=== PATIENT | female | born 2005 | race Caucasian/White ===

== ENCOUNTER 2025-04-29 21:54 | Emergency (ER) | payer BC ==
[2025-04-29] MEDS ORDERED: Lidocaine 1% PF 5 ML VIAL ONE (22:51)
[2025-04-29] MEDS ORDERED: Bacitracin 1 PK ONE (23:20)
== END 2025-04-29 23:26 | disposition home or self-care (01) ==
LOC: ERS 21:54
DX: S61.512A Laceration without foreign body of left wrist, initial encounter (principal); W26.8XXA Contact with other sharp object(s), not elsewhere classified, initial encounter; Y93.89 Activity, other specified; Y99.0 Civilian activity done for income or pay
CPT/HCPCS: 12001; 99282